=== PATIENT | female | born 1960 | race Caucasian/White ===

== ENCOUNTER 2019-01-05 12:59 | Emergency (ER) | payer MEDICAID, OTHER ==
[~2019-01-05] VITALS: Ht 160 cm; Wt 96.3 kg
[~2019-01-05 12:59] MED LIST: AMLO10TA PO; ASPI-1718 PO; ATOR40TA PO; BACL10TA4 PO; DULO60EC PO; GABA-638 PO; GLIP10TA12 PO; LISI10TA11 PO; MECL-272 PO; METF1000 PO
[2019-01-05 13:19] VITALS: BP 143/83
--- NOTE | 2019-01-05 13:33 | NUR ---
PT BIB FAMILY C/O RT KNEE PAIN X 5 DAYS. (-) TRAUMA, PAIN 7/10, BS-217 PT DENIES N/V/D; SKIN IS INTACT, PINK/WARM/DRY; AAOX4, PERRL, UNEVEN SLOW AND STEADY GAIT WITH A SIGHT RT SIDE LIMP; LUNGS CLEAR BL, BREATHING UNLABORED; HR EVEN AND REGULAR, BL PERIPHERAL PULSES PRESENT; BS ACTIVE X4, NO TENDERNESS TO PALPATION. PT DENIES ANY FEVER, CP, SOB, OR COUGH AT THIS TIME; PT STATES 7/10 PAIN AT THIS TIME; VSS; PATIENT POSITIONED FOR COMFORT; HOB ELEVATED; BEDRAILS UP X2; BED DOWN.
--- NOTE | 2019-01-05 13:40 | NUR ---
XRAY AT BEDSIDE
--- NOTE | 2019-01-05 15:09 | NUR ---
PT AT CT AT THIS TIME
[2019-01-05] MEDS ORDERED: HYDROcodone/APAP 5/325 MG 1 TAB TAB PO ONE (16:00)
[2019-01-05 16:28] VITALS: BP 129/85
--- NOTE | 2019-01-05 16:28 | NUR ---
Patient discharged with v/s stable. Written and verbal after care instructions given and explained. Patient alert, oriented and verbalized understanding of instructions. Ambulatory with steady gait. All questions addressed prior to discharge. ID band removed. Patient advised to follow up with PMD. Rx of NORCO given. Patient educated on indication of medication including possible reaction and side effects. Opportunity to ask questions provided and answered. PT WILL WAIT FOR FAMILY TO PICK HER UP IN LOBE
== END 2019-01-05 16:28 | disposition home or self-care (01) ==
LOC: MED 12:59
DX: S83.8X1A Sprain of other specified parts of right knee, initial encounter (principal); X58.XXXA Exposure to other specified factors, initial encounter; Y93.89 Activity, other specified; Y92.89 Other specified places as the place of occurrence of the external cause; Y99.8 Other external cause status; E11.9 Type 2 diabetes mellitus without complications; I10 Essential (primary) hypertension; Z79.84 Long term (current) use of oral hypoglycemic drugs; Z79.899 Other long term (current) drug therapy
CPT/HCPCS: 73562; 73700; 99284; Q0092

== ENCOUNTER 2019-07-01 12:39 | Emergency (ER) | payer MEDICAID ==
[~2019-07-01] VITALS: Ht 160 cm; Wt 98.9 kg
[2019-07-01 12:43] VITALS: BP 144/88
[2019-07-01] MEDS ORDERED: NACL 0.9% 1,000 ML IV ONE (12:55)
[2019-07-01] MEDS ORDERED: KETOROLAC 30 MG/ML VIAL IVP ONE (13:10)
[2019-07-01 13:34] LABS: BASOPHILS % (AUTO) 0.3 % (0.0-2.0); EOSINOPHILS # (AUTO) 0.1 K/uL (0-0.4); EOSINOPHILS % (AUTO) 0.9 % (0.0-4.0); HEMATOCRIT 34.8 % (36-48); LYMPHOCYTES # (AUTO) 1.9 K/uL (2.5-16.5); LYMPHOCYTES % (AUTO) 15.9 % (20.5-51.1); MEAN CORPUSCULAR HEMOGLOBIN 24 pg (27-31); MEAN CORPUSCULAR HGB CONC 32 g/dL (33-37); MEAN CORPUSCULAR VOLUME 76.8 fL (80-94); MONOCYTES # (AUTO) 0.7 K/uL (0.8-1.0); MONOCYTES % (AUTO) 6.3 % (1.7-9.3); NEUTROPHILS % (AUTO) 76.6 % (42.2-75.2); PLATELET COUNT (AUTO) 421 K/uL (140-450); RED BLOOD CELL COUNT(AUTO) 4.53 MIL/uL (4.20-5.40); RED CELL DISTRIBUTION WIDTH 16.9 % (11.6-13.7); WHITE BLOOD COUNT (AUTO) 11.8 K/uL (4.8-10.8)
[2019-07-01 13:49] LABS: ANION GAP 12.9 (8-16); CARBON DIOXIDE 27.3 mmol/L (21-32); CREATININE 0.9 mg/dL (0.6-1.3); POTASSIUM 4.2 mmol/L (3.5-5.1); TOTAL BILIRUBIN 0.2 mg/dL (0.0-1.0)
[2019-07-01] MEDS ORDERED: INSULIN REGULAR, HUMAN 100 UNIT/ML VIAL IV ONE (14:10)
[2019-07-01 15:00] LABS: APPEARANCE,URINE HAZY (CLEAR); BILIRUBIN,URINE NEGATIVE (NEGATIVE); BLOOD, URINE NEGATIVE (NEGATIVE); COLOR,URINE YELLOW (YELLOW); LEUKOCYTE ESTERASE ,URINE NEGATIVE (NEGATIVE); NITRITE, URINE NEGATIVE (NEGATIVE); UGLUCOSE 3+ (NEGATIVE)
[2019-07-01 15:14] LABS: RBC,URINE 0-5 /HPF (0-5)
[2019-07-01 15:40] VITALS: BP 143/89
== END 2019-07-01 15:40 | disposition home or self-care (01) ==
LOC: MED 12:39
DX: E11.65 Type 2 diabetes mellitus with hyperglycemia (principal); N39.0 Urinary tract infection, site not specified; I10 Essential (primary) hypertension; E78.00 Pure hypercholesterolemia, unspecified; M19.90 Unspecified osteoarthritis, unspecified site; Z79.82 Long term (current) use of aspirin; Z79.899 Other long term (current) drug therapy; Z79.84 Long term (current) use of oral hypoglycemic drugs
CPT/HCPCS: 36415; 80053; 81001; 82948; 85025; 87086; 96361; 96374; 96375; 99283; J1815; J1885; J7030

== ENCOUNTER 2019-10-28 21:40 | Emergency (ER) | payer MEDICAID ==
[~2019-10-28] VITALS: Ht 157.5 cm; Wt 99.3 kg
[2019-10-28 22:00] VITALS: BP 152/96
--- NOTE | 2019-10-28 22:03 | NUR ---
to lobby a/w bed ambulatory
--- NOTE | 2019-10-28 23:38 | NUR ---
PT ASSESSMENT COMPLETE. PT LAYING SUPINE IN BED. FAMILY AT BEDSIDE.
[2019-10-28] MEDS ORDERED: NACL 0.9% 1,000 ML IV ONE (23:50)
[2019-10-28] MEDS ORDERED: MECLIZINE 25 MG TAB PO ONE (23:50)
[2019-10-28] MEDS ORDERED: KETOROLAC 30 MG/ML VIAL IVP ONE (23:50)
[2019-10-28] MEDS ORDERED: LORazepam 2 MG/ML VIAL IVP ONE (23:50)
[2019-10-28] MEDS ORDERED: diphenhydrAMINE 50 MG/ML VIAL IVP ONE (23:50)
--- NOTE | 2019-10-29 00:34 | NUR ---
PATIENT ALERT AND ORIENTED, BREATHING EVEN AND UNLABORED, DAUGHTER AT BEDSIDE
[2019-10-29] MEDS ORDERED: INSULIN REGULAR, HUMAN 100 UNIT/ML VIAL SUBQ ONE (00:40)
[2019-10-29 01:18] LABS: APPEARANCE,URINE CLEAR (CLEAR); BILIRUBIN,URINE NEGATIVE (NEGATIVE); BLOOD, URINE NEGATIVE (NEGATIVE); COLOR,URINE YELLOW (YELLOW); LEUKOCYTE ESTERASE ,URINE NEGATIVE (NEGATIVE); NITRITE, URINE NEGATIVE (NEGATIVE); PH,URINE 6.5 (5.0-9.0); UGLUCOSE 3+ (NEGATIVE)
[2019-10-29 01:31] VITALS: BP 129/67
--- NOTE | 2019-10-29 01:31 | NUR ---
Patient discharged with v/s stable. Written and verbal after care instructions ABOUT BENIGN POSITIONAL VERTIGO AND VIRAL INFECTIONS given and explained. Patient alert, oriented and verbalized understanding of instructions. Ambulatory with steady gait. All questions addressed prior to discharge. ID band removed. Patient advised to follow up with PMD. Rx of ANTIVERT AND BENADRYL given. Patient educated on indication of medication including possible reaction and side effects. Opportunity to ask questions provided and answered. PATIENT IS HAVING PICK HER UP.
[2019-10-29 01:44] LABS: RBC,URINE 0-5 /HPF (0-5); WBC,URINE 0-5 /HPF (0-5); YEAST,URINE Few /HPF (None Seen)
== END 2019-10-29 01:31 | disposition home or self-care (01) ==
LOC: MED 21:40
DX: R42 Dizziness and giddiness (principal); B34.9 Viral infection, unspecified; E11.9 Type 2 diabetes mellitus without complications; I10 Essential (primary) hypertension; Z79.84 Long term (current) use of oral hypoglycemic drugs; Z79.899 Other long term (current) drug therapy; Z79.82 Long term (current) use of aspirin
CPT/HCPCS: 81001; 87086; 96361; 96374; 96375; 99283; J1200; J1815; J1885; J2060; J7030; J8597

== ENCOUNTER 2022-04-24 12:19 | Emergency (ER) | payer MEDICAID ==
[~2022-04-24] VITALS: Ht 157.5 cm; Wt 86.2 kg
[~2022-04-24 12:19] MED LIST changes: -ASPI-1718 PO; +ASPI-1822 PO; -DULO60EC PO; +DULO60EC1 PO; +LISI-486 PO; -LISI10TA11 PO; -MECL-272 PO; +MECL-303 PO; +METF-1274 PO; -METF1000 PO
[2022-04-24 12:34] VITALS: BP 147/83
--- NOTE | 2022-04-24 12:42 | NUR ---
PT AMBULATES TO ROOM 3
[2022-04-24] MEDS ORDERED: ONDANSETRON 4 MG/2 ML VIAL IVP ONE (13:10)
[2022-04-24] MEDS ORDERED: MORPHINE SULFATE 2 MG/ML SYR IVP ONE (13:10)
[2022-04-24 13:56] LABS: BASOPHILS # (AUTO) 0.1 K/uL (0.00-0.22); BASOPHILS % (AUTO) 0.9 % (0.0-2.0); EOSINOPHILS # (AUTO) 0.2 K/uL (0-0.4); EOSINOPHILS % (AUTO) 1.4 % (0.0-4.0); HEMATOCRIT 38.1 % (36-48); HEMOGLOBIN 12.3 g/dL (12.0-16.0); LYMPHOCYTES # (AUTO) 2.2 K/uL (2.5-16.5); LYMPHOCYTES % (AUTO) 21.2 % (20.5-51.1); MEAN CORPUSCULAR HEMOGLOBIN 25 pg (27-31); MEAN CORPUSCULAR HGB CONC 32 g/dL (33-37); MEAN CORPUSCULAR VOLUME 76.4 fL (80-94); MONOCYTES # (AUTO) 0.7 K/uL (0.8-1.0); MONOCYTES % (AUTO) 7.1 % (1.7-9.3); NEUTROPHILS # (AUTO) 7.2 K/uL (1.8-7.7); NEUTROPHILS % (AUTO) 69.4 % (42.2-75.2); PLATELET COUNT (AUTO) 434 K/uL (140-450); RED BLOOD CELL COUNT(AUTO) 4.99 MIL/uL (4.20-5.40); RED CELL DISTRIBUTION WIDTH 18.6 % (11.6-13.7); WHITE BLOOD COUNT (AUTO) 10.4 K/uL (4.8-10.8)
[2022-04-24 14:07] LABS: ALBUMIN 3.3 g/dL (3.4-5.0); ANION GAP 9.6 (8-16); CARBON DIOXIDE 27.9 mmol/L (21-32); CREATININE 0.7 mg/dL (0.6-1.3); POTASSIUM 3.5 mmol/L (3.5-5.1); TOTAL BILIRUBIN 0.2 mg/dL (0.0-1.0)
--- NOTE | 2022-04-24 14:11 | NUR ---
62 y/o male bib daughter for c/o pain from back of head to shoulders x 2 days. Patient has 9/10 pain level. Patient also complains of dizziness. Patient has pain while inspiration. Medical History: DM, HTN, LUPUS NKDA
[2022-04-24] MEDS ORDERED: ACET-10509 PO (16:19)
[2022-04-24 16:26] VITALS: BP 127/74
--- NOTE | 2022-04-24 16:26 | NUR ---
Patient discharged with v/s stable. Written and verbal after care instructions given. Patient alert, oriented and verbalized understanding of instructions. Ambulatory with steady gait. All questions addressed prior to discharge. ID band removed. Patient advised to follow up with PMD. Rx of TYELENOL given. Opportunity to ask questions provided and answered.
--- NOTE | 2022-04-24 16:27 | NUR ---
The patient's care was reviewed and supervised by Mandy Londono RN.
== END 2022-04-24 16:26 | disposition home or self-care (01) ==
LOC: MED 12:19
DX: R51.9 Headache, unspecified (principal); M79.10 Myalgia, unspecified site; R07.9 Chest pain, unspecified; E11.9 Type 2 diabetes mellitus without complications; I10 Essential (primary) hypertension; Z79.899 Other long term (current) drug therapy; Z79.82 Long term (current) use of aspirin; Z79.84 Long term (current) use of oral hypoglycemic drugs
CPT/HCPCS: 36415; 70450; 71045; 80053; 83880; 84484; 85025; 85379; 85610; 85730; 93005; 96374; 96375; 99285; J2270; J2405

== ENCOUNTER 2023-05-12 11:57 | Emergency (ER) | payer MEDICAID, OTHER ==
[~2023-05-12] VITALS: Ht 165.1 cm; Wt 103.9 kg
[~2023-05-12 11:57] MED LIST changes: +ACET-10509 PO
[2023-05-12 12:11] VITALS: BP 123/67; PULSE 78; RESP 20; TEMP 97.9; O2SAT 96
--- NOTE | 2023-05-12 12:11 | NUR ---
PATIENT PRESENTS TO ED WITH LFT HAND SPRAIN. PT STATES SHE FELL AND BROKE HER LANDING WITH HER LEFT HAND. DENIES N/V/D; SKIN IS PINK/WARM/DRY; AAOX4 WITH EVEN AND STEADY GAIT; LUNGS CLEAR BL; HR EVEN AND REGULAR; PT DENIES ANY FEVER, CP, SOB, OR COUGH AT THIS TIME; PATIENT STATES PAIN OF 08/10 AT THIS TIME; VSS; PATIENT POSITIONED FOR COMFORT; HOB ELEVATED; BEDRAILS UP X2; BED DOWN. CALL LIGHT WITH IN REACH; ER MD MADE AWARE OF PT STATUS.
--- NOTE | 2023-05-12 13:10 | NUR ---
PT HAS BEEN MEDICATED PER PROVIDERS ORDERS WILL MONITOR PT FOR ADVERSE REACTION.
[2023-05-12 13:11] VITALS: O2SAT 98
[2023-05-12] MEDS ORDERED: IBUP-1842 PO (13:39)
[2023-05-12] MEDS ORDERED: KETOROLAC 30 MG/ML VIAL IM ONE (13:40)
--- NOTE | 2023-05-12 13:53 | NUR ---
EMA WRAP X 1 TO L HAND. + CMS
--- NOTE | 2023-05-12 14:54 | NUR ---
Patient discharged with v/s stable. Written and verbal after care instructions given and explained. Patient verbalized understanding. Ambulatory with steady gait. All questions addressed prior to discharge. Advised to follow up with PMD.
--- NOTE | 2023-05-12 14:55 | NUR ---
The patient's care was reviewed and supervised by Lorie Alcantara, RN, RN.
[2023-05-12 15:03] VITALS: BP 138/89; PULSE 62; RESP 12; TEMP 97.9; O2SAT 98
== END 2023-05-12 14:47 | disposition home or self-care (01) ==
LOC: MED 11:57
DX: S63.592A Other specified sprain of left wrist, initial encounter (principal); S63.591A Other specified sprain of right wrist, initial encounter; E11.9 Type 2 diabetes mellitus without complications; I10 Essential (primary) hypertension; Z79.4 Long term (current) use of insulin; Z79.899 Other long term (current) drug therapy; X58.XXXA Exposure to other specified factors, initial encounter; Y93.89 Activity, other specified; Y92.89 Other specified places as the place of occurrence of the external cause; Y99.8 Other external cause status
CPT/HCPCS: 73110; 73130; 96372; 99285; J1885; Q0092

== ENCOUNTER 2023-06-05 22:42 | Inpatient (IN) | payer OTHER, MEDICAID ==
[~2023-06-05] VITALS: Ht 162.6 cm; Wt 103.0 kg
[~2023-06-05 22:42] MED LIST changes: +IBUP-1842 PO
[2023-06-05 22:51] VITALS: BP 142/78; PULSE 87; RESP 20; TEMP 97.6; O2SAT 99
[2023-06-05 23:19] LABS: BASOPHILS % (AUTO) 0.5 % (0.0-2.0); EOSINOPHILS # (AUTO) 0.1 K/uL (0-0.4); EOSINOPHILS % (AUTO) 0.7 % (0.0-4.0); HEMATOCRIT 37.8 % (36-48); HEMOGLOBIN 12.6 g/dL (12.0-16.0); LYMPHOCYTES # (AUTO) 1.8 K/uL (2.5-16.5); LYMPHOCYTES % (AUTO) 23.3 % (20.5-51.1); MEAN CORPUSCULAR HEMOGLOBIN 27 pg (27-31); MEAN CORPUSCULAR HGB CONC 33 g/dL (33-37); MEAN CORPUSCULAR VOLUME 82.1 fL (80-94); MONOCYTES # (AUTO) 0.9 K/uL (0.8-1.0); MONOCYTES % (AUTO) 11.5 % (1.7-9.3); NEUTROPHILS # (AUTO) 5.1 K/uL (1.8-7.7); PLATELET COUNT (AUTO) 440 K/uL (140-450); RED CELL DISTRIBUTION WIDTH 17.4 % (11.6-13.7); WHITE BLOOD COUNT (AUTO) 7.9 K/uL (4.8-10.8)
[2023-06-05 23:28] LABS: APPEARANCE,URINE SL CLOUDY (CLEAR); BILIRUBIN,URINE NEGATIVE (NEGATIVE); BLOOD, URINE NEGATIVE (NEGATIVE); COLOR,URINE YELLOW (YELLOW); LEUKOCYTE ESTERASE ,URINE 2+ (NEGATIVE); NITRITE, URINE NEGATIVE (NEGATIVE); PH,URINE 6.5 (5.0-9.0); PROTEIN,URINE TRACE (NEGATIVE); UGLUCOSE NEGATIVE (NEGATIVE); UROBILINOGEN,URINE 0.2 EU/dL (0.2 - 1)
[2023-06-05 23:33] LABS: ALBUMIN 3.3 g/dL (3.4-5.0); ANION GAP 12.7 (8-16); CALCIUM 8.8 mg/dL (8.5-10.1); CARBON DIOXIDE 28.1 mmol/L (21-32); CREATININE 1.1 mg/dL (0.6-1.3); POTASSIUM 3.8 mmol/L (3.5-5.1); TOTAL BILIRUBIN 0.2 mg/dL (0.0-1.0); TOTAL PROTEIN, SERUM 8.3 g/dL (6.4-8.2)
[2023-06-05 23:36] LABS: BACTERIA,URINE 3+ /HPF (None Seen); MUCUS,URINE 2+ /LPF (None Seen); RBC,URINE 0-5 /HPF (0-5); SQUAMOUS EPITHELIAL CELL,UR 20-50 /LPF (0-3 (FEW)); TRICHOMONAS,URINE None Seen /HPF (None Seen); YEAST,URINE None Seen /HPF (None Seen)
[2023-06-06] MEDS ORDERED: NACL 0.9% 1,000 ML IV SCH (00:45)
[2023-06-06 01:53] LABS: LIPASE 167 U/L (73-393)
[2023-06-06] MEDS ORDERED: MORPHINE SULFATE 4 MG/ML SYR IVP ONE (02:45)
[2023-06-06] MEDS ORDERED: ONDANSETRON 4 MG/2 ML VIAL IVP ONE (02:45)
[2023-06-06] MEDS ORDERED: FAMOTIDINE 20 MG TAB PO ONE (06:40)
[2023-06-06] MEDS ORDERED: ALUMINUM HYD/MAG/SIMETHICONE 30 ML UDC PO ONE (06:40)
[2023-06-06] MEDS ORDERED: KETOROLAC 15 MG/ML VIAL IVP ONE (06:40)
[2023-06-06] MEDS ORDERED: KETOROLAC 30 MG/ML VIAL ONE (06:41)
[2023-06-06 10:15] VITALS: RESP 16; RESP 18; O2SAT 96; O2SAT 97
[2023-06-06] MEDS ORDERED: MAG SULF 2000 MG/WATER PREMIX 50 ML IV PRN (10:40)
[2023-06-06] MEDS ORDERED: POTASSIUM CHLORIDE 10 MEQ TABER PO PRN (10:40)
[2023-06-06] MEDS ORDERED: ACETAMINOPHEN 325 MG TAB PO PRN (10:40)
[2023-06-06] MEDS ORDERED: HYDROcodone/APAP 5/325 MG 1 TAB TAB PO PRN (10:40)
[2023-06-06] MEDS ORDERED: ONDANSETRON 4 MG/2 ML VIAL IVP PRN (10:40)
[2023-06-06] MEDS ORDERED: MAGNESIUM OXIDE 400 MG TAB PO PRN (10:40)
[2023-06-06] MEDS ORDERED: MORPHINE SULFATE 4 MG/ML SYR IVP PRN (10:40)
[2023-06-06] MEDS ORDERED: KCL 20 MEQ IN 100 mL PREMIX 200 ML IV PRN (10:40)
[2023-06-06] MEDS ORDERED: INSULIN LISPRO SLIDING SCALE 100 UNITS/ML VIAL SUBQ PRN (10:45)
[2023-06-06] MEDS ORDERED: DEXTROSE 50% 50 ML SYR IVP PRN (10:45)
[2023-06-06] MEDS: BLOOD GLUCOSE MONITORING 1 DEV DEV FS SCH ×3 (11:30→21:35)
[2023-06-06] MEDS: NACL 0.9% 1,000 ML IV SCH (11:54)
[2023-06-06] MEDS ORDERED: SIMETHICONE 80 MG TAB.CHEW PO PRN (14:35)
[2023-06-06] MEDS ORDERED: BENZOCAINE/MENTHOL 1 LOZ MM PRN (14:35)
[2023-06-06 16:00] VITALS: BP 107/64; PULSE 85; RESP 18; TEMP 97.8; O2SAT 100
[2023-06-06 20:00] VITALS: BP 121/63; PULSE 78; RESP 17; TEMP 98.6; O2SAT 97
[2023-06-07] MEDS: NACL 0.9% 1,000 ML IV SCH ×2 (01:51→11:40)
[2023-06-07 04:00] VITALS: BP 117/66; PULSE 83; RESP 18; TEMP 97.3; O2SAT 95
[2023-06-07 06:14] LABS: BASOPHILS % (AUTO) 0.5 % (0.0-2.0); EOSINOPHILS # (AUTO) 0.1 K/uL (0-0.4); EOSINOPHILS % (AUTO) 1.7 % (0.0-4.0); HEMATOCRIT 35.3 % (36-48); HEMOGLOBIN 11.6 g/dL (12.0-16.0); LYMPHOCYTES # (AUTO) 1.6 K/uL (2.5-16.5); LYMPHOCYTES % (AUTO) 28.2 % (20.5-51.1); MEAN CORPUSCULAR HEMOGLOBIN 27 pg (27-31); MEAN CORPUSCULAR HGB CONC 33 g/dL (33-37); MEAN CORPUSCULAR VOLUME 82.9 fL (80-94); MONOCYTES # (AUTO) 0.7 K/uL (0.8-1.0); MONOCYTES % (AUTO) 12.1 % (1.7-9.3); NEUTROPHILS # (AUTO) 3.2 K/uL (1.8-7.7); NEUTROPHILS % (AUTO) 57.5 % (42.2-75.2); PLATELET COUNT (AUTO) 359 K/uL (140-450); RED BLOOD CELL COUNT(AUTO) 4.25 MIL/uL (4.20-5.40); RED CELL DISTRIBUTION WIDTH 17.3 % (11.6-13.7); WHITE BLOOD COUNT (AUTO) 5.5 K/uL (4.8-10.8)
[2023-06-07] MEDS: BLOOD GLUCOSE MONITORING 1 DEV DEV FS SCH ×3 (06:35→17:15)
[2023-06-07 06:37] LABS: ALBUMIN 2.7 g/dL (3.4-5.0); ANION GAP 10.6 (8-16); CALCIUM 7.8 mg/dL (8.5-10.1); CARBON DIOXIDE 27.9 mmol/L (21-32); CREATININE 0.7 mg/dL (0.6-1.3); MAGNESIUM 1.8 mg/dL (1.8-2.4); POTASSIUM 3.5 mmol/L (3.5-5.1); TOTAL BILIRUBIN 0.2 mg/dL (0.0-1.0); TOTAL PROTEIN, SERUM 7.2 g/dL (6.4-8.2)
[2023-06-07 08:00] VITALS: BP 129/68; PULSE 72; RESP 20; TEMP 98.3; O2SAT 95; O2SAT 97
[2023-06-07] MEDS ORDERED: SENN-73 PO (16:39)
== END 2023-06-07 19:03 | disposition home or self-care (01) | DRG 386 ==
LOC: MED 22:42 → OBSVTOIN 06-06 10:40 → INTOOBSV 06-06 10:40 → MTU 06-06 10:40
PROVIDERS: ADMIT Hospitalist; ATTEND Hospitalist
DX: K50.90 Crohn's disease, unspecified, without complications (principal); E44.0 Moderate protein-calorie malnutrition; K56.609 Unspecified intestinal obstruction, unspecified as to partial versus complete obstruction; K52.9 Noninfective gastroenteritis and colitis, unspecified; E78.5 Hyperlipidemia, unspecified; E11.9 Type 2 diabetes mellitus without complications; Z79.1 Long term (current) use of non-steroidal anti-inflammatories (NSAID); Z79.899 Other long term (current) drug therapy; Z68.39 Body mass index [BMI] 39.0-39.9, adult
CPT/HCPCS: 36415; 71045; 74250; 80053; 81001; 82948; 83690; 83735; 84484; 85025; 87081; 87086; 96372; 99285; J0696; J1644; J1815; J1885; J2270; J2405; J7060; Q0092; Q9967

== ENCOUNTER 2023-11-24 18:02 | Emergency (ER) | payer OTHER, MEDICAID ==
[~2023-11-24] VITALS: Ht 157.5 cm; Wt 109.9 kg
[~2023-11-24 18:02] MED LIST changes: +SENN-73 PO
[2023-11-24 18:09] VITALS: BP 154/54; PULSE 81; RESP 20; TEMP 97.7; O2SAT 97
[2023-11-24] MEDS ORDERED: HYDROcodone/APAP 5/325 MG 1 TAB TAB PO ONE (18:50)
[2023-11-24] MEDS ORDERED: IBUPROFEN 600 MG TAB PO ONE (18:55)
[2023-11-24 19:22] VITALS: O2SAT 99
[2023-11-24 19:22] LABS: BASOPHILS # (AUTO) 0.1 K/uL (0.00-0.22); BASOPHILS % (AUTO) 0.6 % (0.0-2.0); EOSINOPHILS # (AUTO) 0.2 K/uL (0-0.4); EOSINOPHILS % (AUTO) 1.9 % (0.0-4.0); HEMATOCRIT 36.2 % (36-48); HEMOGLOBIN 12.2 g/dL (12.0-16.0); LYMPHOCYTES # (AUTO) 2.1 K/uL (2.5-16.5); LYMPHOCYTES % (AUTO) 24.1 % (20.5-51.1); MEAN CORPUSCULAR HEMOGLOBIN 28 pg (27-31); MEAN CORPUSCULAR HGB CONC 34 g/dL (33-37); MEAN CORPUSCULAR VOLUME 83.7 fL (80-94); MONOCYTES # (AUTO) 0.9 K/uL (0.8-1.0); NEUTROPHILS # (AUTO) 5.5 K/uL (1.8-7.7); NEUTROPHILS % (AUTO) 63.4 % (42.2-75.2); PLATELET COUNT (AUTO) 405 K/uL (140-450); RED BLOOD CELL COUNT(AUTO) 4.32 MIL/uL (4.20-5.40); RED CELL DISTRIBUTION WIDTH 16.2 % (11.6-13.7); WHITE BLOOD COUNT (AUTO) 8.7 K/uL (4.8-10.8)
[2023-11-24 19:33] LABS: ANION GAP 9.8 (8-16); CALCIUM 8.7 mg/dL (8.5-10.1); CARBON DIOXIDE 32.2 mmol/L (21-32)
[2023-11-24 19:39] LABS: CREATININE 0.8 mg/dL (0.6-1.3)
[2023-11-24] MEDS ORDERED: ACET-10509 PO (21:32)
[2023-11-24 21:49] VITALS: BP 149/74; PULSE 72; RESP 17; TEMP 98; O2SAT 97
== END 2023-11-24 21:49 | disposition home or self-care (01) ==
LOC: MED 18:02
DX: S09.90XA Unspecified injury of head, initial encounter (principal); S50.312A Abrasion of left elbow, initial encounter; E11.9 Type 2 diabetes mellitus without complications; Z79.899 Other long term (current) drug therapy; Z79.82 Long term (current) use of aspirin; W18.39XA Other fall on same level, initial encounter; Y92.89 Other specified places as the place of occurrence of the external cause; Y93.89 Activity, other specified; Y99.8 Other external cause status
CPT/HCPCS: 36415; 70450; 71045; 72125; 80048; 84484; 85025; 93005; 99285